=== PATIENT | female | born 1945 | race Caucasian/White ===

== ENCOUNTER 2018-09-06 19:43 | Inpatient (IN) | payer MEDICARE, OTHER ==
[~2018-09-06] VITALS: Ht 152.4 cm; Wt 66.7 kg
[2018-09-06] MEDS ORDERED: ALPR0.5T8 PO (20:02)
[2018-09-06] MEDS ORDERED: BLOO-170 MM (20:02)
[2018-09-06] MEDS ORDERED: GLIP5TAB13 PO (20:02)
[2018-09-06] MEDS ORDERED: METF-440 PO (20:02)
--- NOTE | 2018-09-06 20:05 | NUR ---
Medically cleared by Dr Mckeon
--- NOTE | 2018-09-06 20:10 | NUR ---
Patient attempting to elope facility. Stating "I need to belt picker my car." Patient was orient to her location and patient was able to deesculate.
--- NOTE | 2018-09-06 20:15 | NUR ---
Patient calm at this time
--- NOTE | 2018-09-06 20:20 | NUR ---
Pt. transferred off unit to admit to MHU, no acute distress,
[2018-09-06 20:30] VITALS: BP 158/66
[2018-09-06] MEDS ORDERED: MAG HYDROX/AL HYDROX/SIMETH 30 ML LIQUID UDC PO PRN (20:30)
[2018-09-06] MEDS ORDERED: ACETAMINOPHEN 650 MG SUPP.RECT RC PRN (20:30)
[2018-09-06] MEDS ORDERED: TEMAZEPAM 7.5 MG CAPSULE PO PRN (20:30)
[2018-09-06] MEDS ORDERED: MAGNESIUM HYDROXIDE 30 ML LIQUID UDC PO PRN (20:30)
[2018-09-06] MEDS: BLOOD SUGAR DIAGNOSTIC 1 EACH STRIP VI SCH (21:00)
[2018-09-06] MEDS: glipiZIDE 5 MG TABLET PO SCH (21:58)
--- NOTE | 2018-09-06 22:00 | NUR ---
Patient refused Accucheck. Risks and benefits explained. Stated that she done it before and she needed to sleep.
--- NOTE | 2018-09-06 22:30 | NUR ---
Patient admitted at 2044 with 72 hours hold due to danger to herself under care of Dr. Bolden. AAO x3. Condition was fair. No acute distress or SOB noted. She was uncooperative, angry, and demanding to leave. Repeating, "I am not going to stay here, I am not a psych patient". She did not cooperate with history and physical. Patient refused body check and refused to sign admitting papers. She also refused Accucheck. Admitting order and belonging list done. Continue to monitor.
--- NOTE | 2018-09-07 04:13 | NUR ---
Patient refused body check. Also refused to take history and doing physical on her. Denies mental problem.
[2018-09-07] MEDS: BLOOD SUGAR DIAGNOSTIC 1 EACH STRIP VI SCH ×3 (06:30→21:14)
--- NOTE | 2018-09-07 06:59 | NUR ---
Patient refused to take shower.
[2018-09-07 07:30] VITALS: BP 126/60
[2018-09-07] MEDS: METFORMIN HCL 500 MG TABLET PO SCH ×2 (08:48→17:36)
[2018-09-07] MEDS ORDERED: BLOOD SUGAR DIAGNOSTIC 1 EACH STRIP VI SCH ×2 (09:00)
[2018-09-07] MEDS ORDERED: DEXTROSE 50% 50 ML DISP.SYRIN IV PRN ×2 (09:30→22:15)
[2018-09-07] MEDS ORDERED: INSULIN REGULAR, HUMAN 300 UNIT/3 ML VIAL SQ PRN (09:30)
--- NOTE | 2018-09-07 11:45 | NUR ---
Gps/Supervisor Sewing Room- Patient was able to take shower w. GEAR CHANGER supervising her. Patient speaks Farsi and noted interacting well w/ GEAR CHANGER speaking Farsi. Patient verbalized anger, does not want to be here, claimed she does not belong here, " i am not crazy like them". Refusing to have her accu-check done . Patient kept coming to Nurses station, demanding to give her back her red dirty dress, needed to be in the dry deck specialist not wash w/ water and soap, claimed she will sussy this place if her dress shrank.
--- NOTE | 2018-09-07 15:51 | NUR ---
Gps/Biodiesel Plant Manager- Ira Pride [phone] , called , she claimed she is Sepideh's friend for many years, spoke to patient claimed it is ok to talk to her and give informations, permission from patient obtained .No info. was provided, until patient was able to talk to her.
[2018-09-07 16:00] VITALS: BP 147/65
--- NOTE | 2018-09-07 17:30 | NUR ---
Gps/Regional Director Of Finance- Patient finally agreed to have her blood sugar check after 4x of reoffering . BS 522, patient started to eat dinner. Patient was educ. and iinstructed importance of letting staff check her BS as well as insulin administration while she is in the MHU. Able to persuaed patient to take her routine oral blood sugar meds. Charge Nurse informed of the elevated blood sugar. Informed Medical Doctor in charge of patient. Patient labile mood contant redirections , non compliance with dietary needs and intake.
[2018-09-07] MEDS: glipiZIDE 5 MG TABLET PO SCH (17:35)
--- NOTE | 2018-09-07 18:30 | NUR ---
Gps/Take Away Attendant- Patient noted to be argumentative with staff, regarding changing TV channels. Difficulty redirecting, gets loud, kept refusing prn.Continue to monitor behavior.
[2018-09-07] MEDS: LORAZEPAM 1 MG TABLET PO PRN (20:29)
[2018-09-07 20:39] VITALS: BP 148/91
--- NOTE | 2018-09-07 20:44 | NUR ---
patient c/o anxiety. ativan 1 mg po given.
[2018-09-07] MEDS: DIVALPROEX 250 MG TABLET.DR PO SCH (21:03)
--- NOTE | 2018-09-07 21:40 | NUR ---
PATIENT IS RESTING IN BED. CALM AND COOPERATIVE. ATIVAN EFFECTIVE FOR ANXIETY.
[2018-09-07] MEDS: INSULIN REGULAR, HUMAN 300 UNIT/3 ML VIAL SQ PRN (23:07)
[2018-09-08] MEDS: ACETAMINOPHEN 325 MG TABLET PO PRN ×2 (05:38→18:18)
--- NOTE | 2018-09-08 05:38 | NUR ---
PATIENT C/O GEN: PAIN. TYLENOL 650 MG PO GIVEN.
--- NOTE | 2018-09-08 06:08 | NUR ---
REMAIN UNCOOPERATIVE WITH CARE. COMPLIANT WITH MEDICATIONS. SLEPT 6:30 HRS THROUGH THE NIGHT.
[2018-09-08] MEDS: BLOOD SUGAR DIAGNOSTIC 1 EACH STRIP VI SCH ×4 (06:56→20:55)
[2018-09-08 07:30] VITALS: BP 138/76
[2018-09-08 08:04] LABS: CARBON DIOXIDE 24 mmol/L (21-32); CHLORIDE 98 mmol/L (98-107); CREATININE 0.7 mg/dL (0.6-1.3); POTASSIUM 4.2 mmol/L (3.5-5.1); UREA NITROGEN, BLOOD 13 mg/dL (7-18)
[2018-09-08 08:10] LABS: GLUCOSE 302 mg/dL (74-106)
[2018-09-08] MEDS: DIVALPROEX 250 MG TABLET.DR PO SCH ×3 (09:00→17:00)
[2018-09-08] MEDS: METFORMIN HCL 500 MG TABLET PO SCH ×2 (09:30→17:31)
[2018-09-08] MEDS: LORAZEPAM 1 MG TABLET PO PRN (09:57)
[2018-09-08] MEDS: INSULIN REGULAR, HUMAN 300 UNIT/3 ML VIAL SQ PRN ×3 (09:58→20:52)
--- NOTE | 2018-09-08 10:56 | NUR ---
Firearms Report: orchard worker completed and submitted a [employer] firearms report for a 5150 DTS certification.
--- NOTE | 2018-09-08 12:00 | NUR ---
pt continues to be uncooperative, agressive, hostile, verbally abusive, grandiose. continues to refuse all meds. blood sugar 457, pt refusing insulin. explained importance of insulin, states "i dont take that, i dont need it. I am here by mistake, i have my own dr to help me. i have my own medications in my purse and i demand you give them to me right now. i will keep them in my pocket and take them as I need them. i am a chanell, why are you not following my commands!" explained to pt that not only does she not have a bag/purse or medications here, that we can only give what the dr prescribes. states " i will sussy you and make sure to give orders to make sure you get killed after i break out of here. i am not taking any of your poison!"
--- NOTE | 2018-09-08 12:30 | NUR ---
paged dr gunderson through exchange to report blood sugar level of 457 and that pt is refusing insulin. awaiting call back.
--- NOTE | 2018-09-08 13:02 | NUR ---
SW DR CASIANO ABOUT BG 457 AND PT REFUSING INSULIN. NO NEW ORDERS.
--- NOTE | 2018-09-08 14:00 | NUR ---
PT CONTINUES TO BE AGGITATED, VERBALLY ABUSIVE, PHYSICALLY THREATENING STAFF MEMBERS, CONSTANTLY GOING INTO NURSING STATION AND RECREATIONAL ACTIVITY OFFICE, ARGUMENTATIVE WITH STAFF AND PTS, AGGITATING OTHER PTS. PT NOT REDIRECTABLE,REFUSING PRN PO MEDICATION.
[2018-09-08] MEDS ORDERED: LORAZEPAM 2 MG/1 ML VIAL IM STA (14:14)
[2018-09-08] MEDS ORDERED: diphenhydrAMINE 50 MG/1 ML VIAL IM STA (14:14)
[2018-09-08] MEDS ORDERED: HALOPERIDOL LACTATE 5 MG/1 ML VIAL IM STA (14:14)
--- NOTE | 2018-09-08 15:30 | NUR ---
IM GIVEN PER MD ORDER. PY TOLERATED MEDICATIONS WELL, MONITORED PER P/P.
[2018-09-08 15:49] VITALS: BP 146/72
[2018-09-08 20:25] VITALS: BP 160/89
[2018-09-08] MEDS: INSULIN GLARGINE,HUM 300 UNITS/3 ML CARTRIDGE SQ SCH (20:47)
--- NOTE | 2018-09-09 00:01 | NUR ---
Lying in bed non compliant for staff to perform blood sugar check or administer insulin injections. 1-1 with staff to verbalize her feelings. I was finally able to check pts blood sugar of 372 gave 13 units of lantus and 10 units of Humlin regular. Ate 100% of her snack.
[2018-09-09] MEDS: ACETAMINOPHEN 325 MG TABLET PO PRN ×3 (04:06→17:19)
[2018-09-09] MEDS: BLOOD SUGAR DIAGNOSTIC 1 EACH STRIP VI SCH ×4 (06:39→20:31)
--- NOTE | 2018-09-09 06:51 | NUR ---
Slept 8.3 hrs during the shift. 0700 Blood Sugar 300. Pt remains angry for being placed in [facility] on a hold.
[2018-09-09 07:30] VITALS: BP 165/88
[2018-09-09] MEDS: METFORMIN HCL 500 MG TABLET PO SCH ×2 (08:02→17:38)
[2018-09-09] MEDS: DIVALPROEX 250 MG TABLET.DR PO SCH ×3 (08:02→17:38)
[2018-09-09] MEDS: INSULIN REGULAR, HUMAN 300 UNIT/3 ML VIAL SQ PRN ×3 (11:57→20:31)
--- NOTE | 2018-09-09 15:57 | NUR ---
Initial Discharge Note: Patient is a 72 year old female who is currently homeless living out of her van. Per patient she has been living out of her van for 3 months. Patient states she morris her van in the parking lot of the [employer] [[address] [place] [address]; ] where she receives lunch and other food products. Per patient she would like to return to her van. However, patient needs assistance with getting her van out of "[employer]". textile pin worker will collaborate with patient, patient support system, and MD on a safe and proper discharge.
[2018-09-09 16:00] VITALS: BP 156/90
[2018-09-09 20:00] VITALS: BP 151/82
[2018-09-09] MEDS: risperiDONE 0.5 MG TABLET PO SCH (20:26)
[2018-09-09] MEDS: INSULIN GLARGINE,HUM 300 UNITS/3 ML CARTRIDGE SQ SCH (20:30)
[2018-09-10] MEDS: BLOOD SUGAR DIAGNOSTIC 1 EACH STRIP VI SCH ×4 (06:37→20:56)
--- NOTE | 2018-09-10 06:41 | NUR ---
Received Pt at the Nurse's station asking for multiple items: the phone, her friend's phone number, snacks, juice, and new clothes. Pt is needy, demanding, and hyperverbal, requires firm limits and redirection. Exhibits pressured speech and elevated affect. Poor insight, denies any psychiatric problem, repeatedly states she should not be here and needs to go home. Selective with medications, requires prompting to take them. Intrusive with other Pt's and attempts to get involved when staff is rendering care to another Pt. Denies SI/HI/AH/VH. Refused shower, appears disheveled. HS BS 327, 13 units Lantus and 8 units regular insulin ordered per SS. Pt initially refused insulin, and was educated about her elevated BS and the risks of refusing insulin, after which she gave permission to administer. VS stable, denies pain. In no acute physical distress. AM BS 267.
[2018-09-10 07:30] VITALS: BP 146/86
[2018-09-10] MEDS: INSULIN REGULAR, HUMAN 300 UNIT/3 ML VIAL SQ PRN ×4 (07:59→20:54)
[2018-09-10] MEDS: DIVALPROEX 250 MG TABLET.DR PO SCH ×3 (08:22→17:24)
[2018-09-10] MEDS: METFORMIN HCL 500 MG TABLET PO SCH ×2 (08:22→17:23)
[2018-09-10] MEDS: risperiDONE 0.5 MG TABLET PO SCH ×2 (08:22→20:56)
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
--- NOTE | 2018-09-10 13:30 | NUR ---
GROUP NOTE: Patients were asked to discuss their thoughts on what they would change in their lives in order to invoke empowerment and explore coping strategies for things they cannot change. Subjective: "If I could change something about myself? Nothing. About the world, the politics." Objective: Patient expressed interest in attending group and was present for group the entire time. Patient maintained eye contact throughout the group time. Patient discussed topics that were off-topic from the group and required redirection. Assessment: Patient presented in a calm and cooperative mood. Patient's thought process seemed tangential and circumstantial, as she began trying to discuss other topics in the group (i.e. suicide bombers, the [place] wedding, etc.) Patient required frequent redirection and instruction to let other members of the group speak. Patient presented with grandiose delusions stating that the was and [place] and "best friends with Princess Myers." Pt seems to lack insight into her mental health. Plan: SW will continue to encourage group attendance as scheduled. SW will continue to provide support to the patient to encourage insight and coping skills.
--- NOTE | 2018-09-10 14:17 | NUR ---
Discharge Planning: bead worker sewing initiated conversation with patient regarding conversation with Ira Pride [[phone]; see previous DC planning note]. Patient refuses to believe that her license is suspended and that her van is unlivable. Patient remains delusional about current living situation stating that she "knows many people" and can live with them. bead worker sewing brought up discharge to a usp facility and patient vehemently denied stating she will return to her van, though currently unlivable and not an option. Patient continues to perseverate about getting discharged and even began to get agitated. Patient stated that she would kill herself if she wasn't released and that she would do it "now". bead worker sewing inquired if patient has a plan to carry out suicide and patient stated "I'm not telling you" and was unable to contract for safety at this time. Patient then told social media job titles to get out of her room. bead worker sewing left room and went to nursing station to inform charge authorizer, Jeancarlos, about patient SI comments. Both chargemaster analyst and social media job titles returned to speak with patient, who was now in MHU community room. bead worker sewing asked patient if she was still having thoughts about killing self and patient denied and stated she didn't have a plan. Patient was able to contract for safety. Nurses and social media job titles will continue to frequently check on patient. bead worker sewing will continue to collaborate with patient and MD on a safe and proper discharge.
[2018-09-10 16:00] VITALS: BP 125/73
--- NOTE | 2018-09-10 19:55 | NUR ---
RECEIVED PATIENT IN THE HALLWAY, SHE IS NOTED A/O X 3. SHE CONTINUE FIXED ON BEING DISCHARGED FROM FACILITY. SHE IS NOTED WITH LABILE BX. EASILY IRRITABLE DEMANDING AND ARGUMENTATIVE. V/S STABLE AT THIS TIME, WILL CONTINUE TO MONITOR.
[2018-09-10 20:14] VITALS: BP 138/78
[2018-09-10] MEDS: INSULIN GLARGINE,HUM 300 UNITS/3 ML CARTRIDGE SQ SCH (20:55)
--- NOTE | 2018-09-10 22:00 | NUR ---
PATIENT WAS COMPLIANT WITH [facility] MEDICATION REGIMENT. SHE IS NOTED CALM AND PLEASANT; HOWEVER, SHE CONTINUE FIXED ON HER DISCHARGE. WILL CONTINUE TO MONITOR
[2018-09-11] MEDS: BLOOD SUGAR DIAGNOSTIC 1 EACH STRIP VI SCH ×4 (06:57→20:56)
[2018-09-11 07:30] VITALS: BP 136/67
[2018-09-11] MEDS: risperiDONE 0.5 MG TABLET PO SCH (08:39)
[2018-09-11] MEDS: DIVALPROEX 250 MG TABLET.DR PO SCH ×3 (08:39→17:27)
[2018-09-11] MEDS: METFORMIN HCL 500 MG TABLET PO SCH ×2 (08:39→17:27)
[2018-09-11] MEDS: INSULIN REGULAR, HUMAN 300 UNIT/3 ML VIAL SQ PRN ×4 (08:42→20:58)
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
--- NOTE | 2018-09-11 19:30 | NUR ---
RECEIVED PATIENT IN THE DAY ROOM WATCHING TV, SHE IS NOTED A/O X 3. CALM AND PLEASANT UPON APPROACHED LESS DEMANDING AND LESS IRRITABLE. UPON INTERVIEW SHE IS NOTED WITH FLIGHT OF IDEAS, TANGENTAL, BUT CONTINUE WISHING TO GO HOME, SHE STATED, "I WANT TO GO BACK HOME SO I CAN GO TO [place] ON SATURDAY. PATIENT CONTINUE HAVING POOR INSIGHT INTO THE REASON FOR HER ADMISSION TO MHU. V/S STABLE AT THIS TIME, PT WAS REASSURED FOR HER SAFETY, SHE WAS ENCOURAGE EXPRESSION OF FEELINGS OR ANY THOUGHTS. WILL CONTINUE TO MONITOR.
[2018-09-11] MEDS: risperiDONE 1 MG TABLET PO SCH (20:56)
[2018-09-11 21:02] VITALS: BP 124/70
[2018-09-11] MEDS: INSULIN GLARGINE,HUM 300 UNITS/3 ML CARTRIDGE SQ SCH (21:05)
[2018-09-12] MEDS: BLOOD SUGAR DIAGNOSTIC 1 EACH STRIP VI SCH ×4 (06:38→20:40)
[2018-09-12 08:30] VITALS: BP 133/70
[2018-09-12] MEDS: METFORMIN HCL 500 MG TABLET PO SCH ×2 (08:35→17:33)
[2018-09-12] MEDS: DIVALPROEX 250 MG TABLET.DR PO SCH ×3 (08:35→16:24)
[2018-09-12] MEDS: risperiDONE 0.5 MG TABLET PO SCH (08:36)
[2018-09-12] MEDS: INSULIN REGULAR, HUMAN 300 UNIT/3 ML VIAL SQ PRN ×3 (12:39→20:45)
[2018-09-12 15:00] VITALS: BP 129/73
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
--- NOTE | 2018-09-12 16:28 | NUR ---
Gps/Inspector Mechanical- Inappropriate behavior during the group therapy, per Rec therapist, pt. kept turning the radio off while in the middle of tx., patient claimed she wanted to watch TV and there in no therapy going on. Needed redirections .
[2018-09-12 20:00] VITALS: BP 137/91
[2018-09-12] MEDS: risperiDONE 1 MG TABLET PO SCH (20:34)
[2018-09-12] MEDS: INSULIN GLARGINE,HUM 300 UNITS/3 ML CARTRIDGE SQ SCH (20:46)
[2018-09-12] MEDS: DIVALPROEX 500 MG TABLET.DR PO SCH (20:53)
--- NOTE | 2018-09-13 06:15 | NUR ---
GPS: REMAIN CALM AND COOPERATIVE WITH MEDICATIONS AND CARE. NO BEHAVIOR PROBLEM NOTED. SLEPT 6 HRS THROUGH THE NIGHT. CONTINUE PLAN OF CARE.
[2018-09-13] MEDS: BLOOD SUGAR DIAGNOSTIC 1 EACH STRIP VI SCH ×4 (06:24→20:59)
[2018-09-13 08:11] VITALS: BP 151/83
[2018-09-13] MEDS: risperiDONE 0.5 MG TABLET PO SCH (08:41)
[2018-09-13] MEDS: METFORMIN HCL 500 MG TABLET PO SCH ×2 (08:41→18:01)
[2018-09-13] MEDS: DIVALPROEX 250 MG TABLET.DR PO SCH ×2 (08:41→13:21)
[2018-09-13] MEDS: INSULIN REGULAR, HUMAN 300 UNIT/3 ML VIAL SQ PRN ×3 (08:43→21:04)
[2018-09-13] MEDS ORDERED: DIVALPROEX 125 MG TABLET.DR PO SCH (09:00)
[2018-09-13] MEDS ORDERED: LORAZEPAM 0.5 MG TABLET PO PRN (15:45)
[2018-09-13 16:13] VITALS: BP 149/58
[2018-09-13 20:00] VITALS: BP 140/74
[2018-09-13] MEDS: risperiDONE 1 MG TABLET PO SCH (20:58)
[2018-09-13] MEDS: DIVALPROEX 500 MG TABLET.DR PO SCH (20:58)
[2018-09-13] MEDS: INSULIN GLARGINE,HUM 300 UNITS/3 ML CARTRIDGE SQ SCH (21:06)
--- NOTE | 2018-09-13 22:00 | NUR ---
PATIENT PRESENTS WITH FLIGHT OF IDEAS. BRIGHT AFFECT, LABILE MOOD. PLEASANT UPON APPROACHED. MEDICATION COMPLIANT AT THIS TIME. PT WAS ASSESS FOR SAFETY, SHE WAS ENCOURAGE TO VERBALIZED FEELINGS. DENIES SI/HI. DENIES AH/VH. ABLE TO CFS. V/S STABLE. WILL CONTINUE TO MONITOR.
[2018-09-14] MEDS: BLOOD SUGAR DIAGNOSTIC 1 EACH STRIP VI SCH ×4 (06:43→20:59)
[2018-09-14 07:30] VITALS: BP 131/74
[2018-09-14] MEDS ORDERED: risperiDONE 0.5 MG TABLET PO SCH (09:00)
[2018-09-14] MEDS: METFORMIN HCL 500 MG TABLET PO SCH ×2 (09:31→17:54)
[2018-09-14] MEDS: DIVALPROEX 250 MG TABLET.DR PO SCH ×2 (09:31→15:19)
[2018-09-14] MEDS: risperiDONE 1 MG TABLET PO SCH ×2 (09:31→20:52)
[2018-09-14 15:58] VITALS: BP 129/73
[2018-09-14] MEDS: INSULIN REGULAR, HUMAN 300 UNIT/3 ML VIAL SQ PRN ×2 (17:55→21:00)
[2018-09-14 20:05] VITALS: BP 138/72
[2018-09-14] MEDS: DIVALPROEX 500 MG TABLET.DR PO SCH (20:52)
[2018-09-14] MEDS: INSULIN GLARGINE,HUM 300 UNITS/3 ML CARTRIDGE SQ SCH (21:04)
--- NOTE | 2018-09-14 22:53 | NUR ---
RECEIVED PATIENT IN THE ACTIVITY ROOM WHO PROMPTLY GOT OUT TO ASK NURSES TO CHANGE THE T.V CHANNEL FOR HER.WHEN SHE WAS TOLD TO WAIT FOR A FEW MINUTES SHE REPLIED '[employer]SHOLES'.HER MOOD IS LABILE.AFFECT BRIGHT, AND MOVING FROM ONE TOPIC TO THE NEXT.SHE HOWEVER TOOK ALL HER MEDS AND SALUTED THE NURSE.ON BLOOD SUGAR CHECK WITH GLARGINE COVERAGE.SAME GIVEN WITH NO ADVERSE EFFECT.WILL CONTINUE TO MONITOR.
[2018-09-15] MEDS: BLOOD SUGAR DIAGNOSTIC 1 EACH STRIP VI SCH ×4 (06:47→20:06)
--- NOTE | 2018-09-15 06:57 | NUR ---
SLEPT FOR APPROX. 7;30 HRS.LATER ACCUSED STAFF OF MAKING NOISE IN THE HALLWAY.BLOOD SUGAR CHECK 108
[2018-09-15 07:20] LABS: CARBON DIOXIDE 32 mmol/L (21-32); CHLORIDE 104 mmol/L (98-107); CREATININE 0.6 mg/dL (0.6-1.3); GLUCOSE 114 mg/dL (74-106); MAGNESIUM 1.7 mg/dL (1.8-2.4); PHOSPHOROUS 4.2 mg/dL (2.5-4.9); POTASSIUM 4.7 mmol/L (3.5-5.1); UREA NITROGEN, BLOOD 13 mg/dL (7-18)
[2018-09-15 07:45] LABS: BASOPHILS % (AUTO) 0.7 % (0.0-2.0); EOSINOPHILS # (AUTO) 0.2 K/uL (0.0-0.7); HEMATOCRIT 37.1 % (31.2-41.9); HEMOGLOBIN 12.5 g/dL (10.9-14.3); LYMPHOCYTES # (AUTO) 2.9 K/uL (20.0-40.0); MEAN CORPUSCULAR HEMOGLOBIN 26.9 uug (24.7-32.8); MEAN CORPUSCULAR HGB CONC 34 g/dL (32.3-35.6); MEAN CORPUSCULAR VOLUME 80.1 fL (75.5-95.3); MONOCYTES # (AUTO) 0.6 K/uL (2.0-10.0); MONOCYTES % (AUTO) 8.8 % (0.0-11.0); NEUTROPHILS # (AUTO) 2.7 K/uL (1.8-8.9); NEUTROPHILS % (AUTO) 42.5 % (38.5-71.5); PLATELET COUNT (AUTO) 242 K/uL (179-408); RED BLOOD CELL COUNT(AUTO) 4.64 MIL/uL (3.63-4.92); WHITE BLOOD COUNT (AUTO) 6.4 K/uL (3.8-11.8)
[2018-09-15 07:59] VITALS: BP 158/78
[2018-09-15] MEDS: DIVALPROEX 250 MG TABLET.DR PO SCH ×2 (08:03→12:04)
[2018-09-15] MEDS: risperiDONE 1 MG TABLET PO SCH ×2 (08:03→20:07)
[2018-09-15] MEDS: METFORMIN HCL 500 MG TABLET PO SCH ×2 (08:03→17:06)
--- NOTE | 2018-09-15 11:46 | NUR ---
GPS: NURSING: RECEIVED LAB RESULT WITH MAGNESIUM LEVEL 1.7 AND RELAYED IT TO MARSHA ARECHIGA, WAITING FOR CALL BACK.
--- NOTE | 2018-09-15 12:31 | NUR ---
Discharge Planning: pole frame construction worker called and left a voicemail for Janes Reynolds,supervisor felling bucking, at [facility] [[phone]] regarding placement for patient. pole frame construction worker awaiting call back.
--- NOTE | 2018-09-15 14:00 | NUR ---
GPS: NURSING: PATIENT VISITED BY MARSHA ARECHIGA AND RELAYED PATIENT'S LAB RESULT FOR MAGNESIUM OF 1.7 WITH NEW ORDERS OF 400MG MAG OXIDE PO ONCE.
[2018-09-15] MEDS ORDERED: MAGNESIUM OXIDE 400 MG TABLET PO ONE (14:15)
[2018-09-15] MEDS: INSULIN REGULAR, HUMAN 300 UNIT/3 ML VIAL SQ PRN ×2 (17:01→20:09)
[2018-09-15 17:05] VITALS: BP 157/82
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
[2018-09-15] MEDS: DIVALPROEX 500 MG TABLET.DR PO SCH (20:07)
[2018-09-15] MEDS: INSULIN GLARGINE,HUM 300 UNITS/3 ML CARTRIDGE SQ SCH (20:08)
[2018-09-15 20:21] VITALS: BP 144/65
[2018-09-15] MEDS ORDERED: risperiDONE 0.5 MG TABLET PO SCH (21:00)
--- NOTE | 2018-09-16 05:59 | NUR ---
Received Pt in the day room, VS stable, denies pain, in no acute physical distress. Denies SI, remains unkempt and disheveled, refuses shower. Compliant with HS medications, cooperative with staff direction. Hyperverbal attention-seeking and intrusive. Presents with grandiose delusions, states she was a "chanell in [place]", and has poor insight into her mental condition and reason for admission. Pt denies all events written on her 5150, and states "they are all lies." Denies SI/HI, denies AH/VH. HS BS 387, 10 units regular insulin administered per SS and Lantus 13 units per MD order. Pt states she felt "good" and exhibited no overt s/s of hyperglycemia.
--- NOTE | 2018-09-16 06:23 | NUR ---
REBECCA BS 75.
[2018-09-16] MEDS: BLOOD SUGAR DIAGNOSTIC 1 EACH STRIP VI SCH ×4 (06:32→21:58)
[2018-09-16 07:30] VITALS: BP 145/80
[2018-09-16] MEDS: DIVALPROEX 250 MG TABLET.DR PO SCH ×2 (08:04→12:23)
[2018-09-16] MEDS: METFORMIN HCL 500 MG TABLET PO SCH ×2 (08:04→17:06)
[2018-09-16] MEDS: risperiDONE 1 MG TABLET PO SCH ×2 (08:05→20:54)
[2018-09-16] MEDS ORDERED: MAGNESIUM OXIDE 400 MG TABLET PO ONE (09:30)
--- NOTE | 2018-09-16 13:32 | NUR ---
Discharge planning: sub assembly team worker placed second phone call to [facility] [[phone]] and was transferred to YORDAN Parmar, at facility. Per front office specialist, he was the person to speak with regarding placement for patient. sub assembly team worker left voicemail for Ghulam regarding patient placement and requested a phone call back. Addendum: 09/16/18 at 1455 by JEAN ORO Additional information: sub assembly team worker received return phone call from Ghulam FARR, at [facility] [[phone]]. Per Ghulam, there are two homeless shelters that patient could be transported directly to including [facility] [[address] [place] [address]; ] and [facility] [[address], [place]; ]. Ghulam also provided a contact for board and care, [facility] [[phone]]. sub assembly team worker will follow-up with these agencies. Per Ghulam, [facility] will be able to provide transportation upon discharge with a 24 hour notice.
--- NOTE | 2018-09-16 15:45 | NUR ---
GPS: NURSING: RECEIVED PACKAGE FROM A FRIEND, BARRETT, ASKED PATIENT TO COME TO THE NURSING STATION TO OPEN THE PACKAGE. INSIDE THE PACKAGE WAS: 1 BLUE BAG (AAA), 1 BLACK ZIPPER JACKET, 1 DARK BLUE TANK TOP, 1 BLUE DRESS, 1 FLOWER DRESS, 1 PAIR OF BLUE PAJAMA, 1 BLACK PANTS, 1 VALLEJO LONG SLEEVE, 3 PAIRS OF SOCKS (SKECHERS), 5 UNDERWEAR (1 BLACK, 1 BLUE, 2 VALLEJO AND 1 STRIPE, AND I BAG OF COSMETICS) AND I WHITE WIRED BRA. NOTED IN THE INVENTORY AND CONTRABAND STORED.
[2018-09-16 16:00] VITALS: BP 163/62
[2018-09-16] MEDS: INSULIN REGULAR, HUMAN 300 UNIT/3 ML VIAL SQ PRN ×2 (19:03→22:07)
--- NOTE | 2018-09-16 19:30 | NUR ---
Received Pt in hallway, pacing up and down between guzman and day room. A+Ox3, compliant with medications, cooperative with staff direction, but needs multiple redirection to room. Denies SI/HI and denies AH/VH, but appears internally preoccupied. Pt is pleasant and presents with elated affect. Denies SI/HI/AH/VH. V/S stable, denies pain, in no acute physical distress. BG was 191 at HS, administered 3 units R insulin per sliding scale and provided snacks. Also administered Lantus 13 units per routine scheduled medication. RN to continue to monitor pt. for s/s hypoglycemia.
[2018-09-16 20:13] VITALS: BP 157/82
[2018-09-16] MEDS: DIVALPROEX 500 MG TABLET.DR PO SCH (20:53)
[2018-09-16] MEDS: INSULIN GLARGINE,HUM 300 UNITS/3 ML CARTRIDGE SQ SCH (22:10)
[2018-09-17] MEDS: BLOOD SUGAR DIAGNOSTIC 1 EACH STRIP VI SCH ×4 (06:30→20:21)
[2018-09-17 07:30] VITALS: BP 149/66
[2018-09-17] MEDS: METFORMIN HCL 500 MG TABLET PO SCH ×2 (08:13→17:05)
[2018-09-17] MEDS: DIVALPROEX 250 MG TABLET.DR PO SCH ×2 (08:14→12:13)
[2018-09-17] MEDS: risperiDONE 1 MG TABLET PO SCH ×2 (08:14→20:22)
[2018-09-17] MEDS: INSULIN REGULAR, HUMAN 300 UNIT/3 ML VIAL SQ PRN ×3 (12:16→20:36)
--- NOTE | 2018-09-17 12:29 | NUR ---
Activity group note: Patients were asked to answer the question of "What is one thing you would change about yourself and why? Subjective: "If I could change one thing, it would be to work more as a team [with ex-]" Objective: Patient appeared happy to participate in activity and was attentive to peers. Patient seemed eager to share and often would share opinion on what peers would share. Assessment: Patient needs frequent redirection and reminders to let others speak. Plan: Encourage group attendance as scheduled. youth care worker will help patient be mindful of self and aware when speaking over others. youth care worker will help patient with boundary setting.
--- NOTE | 2018-09-17 14:23 | NUR ---
Discharge Planning: spot worker and patient had discussion of discharge planning in regard to placement. Patient is still fixated that she can return to her van that is impounded and refuses to believe otherwise despite speaking with Paulo moore, who states patient cannot get vehicle out without paying fines and having a person present with a valid farm truck driver's license to drive the vehicle. Patient agreed to go to [facility] [[address] , [place] [address]; ] homeless senior care upon discharge.
[2018-09-17 16:00] VITALS: BP 139/74
[2018-09-17 20:09] VITALS: BP 147/79
[2018-09-17] MEDS: DIVALPROEX 500 MG TABLET.DR PO SCH (20:22)
[2018-09-17] MEDS: INSULIN GLARGINE,HUM 300 UNITS/3 ML CARTRIDGE SQ SCH (20:28)
--- NOTE | 2018-09-18 06:26 | NUR ---
GPS: REMAIN CALM AND COOPERATIVE WITH MEDICATIONS AND CARE. NO AGGRESSIVE BEHAVIOR NOTED. SLEPT 8 HRS THROUGH THE NIGHT. CONTINUE PLAN OF CARE.
[2018-09-18] MEDS: BLOOD SUGAR DIAGNOSTIC 1 EACH STRIP VI SCH ×4 (06:42→20:44)
[2018-09-18 07:30] VITALS: BP 143/74
[2018-09-18] MEDS: DIVALPROEX 250 MG TABLET.DR PO SCH ×2 (08:12→13:05)
[2018-09-18] MEDS: risperiDONE 1 MG TABLET PO SCH ×2 (08:12→20:07)
[2018-09-18] MEDS: METFORMIN HCL 500 MG TABLET PO SCH ×2 (08:12→17:11)
--- NOTE | 2018-09-18 10:21 | NUR ---
DISCHARGE NOTE: Patient will be discharged back to [facility] [[address], [place] [address]; ] and transportation will be provided by [facility] between 11:00am-12:00pm. Transpiration was arranged by Ghulam [[phone]] , COLLATERAL CLERK, at [facility]. general ii farmworker called and spoke with Priscilla, regional transportation manager, at [facility], who states no warm hand-off is needed and that patient should get in line for a bed at 4:00pm. Per Priscilla, check-in for a bed is at 5:00pm. Patient friend/advocate, Ira Pride [[phone]], has been contacted and notified of discharge and she is aware and agreeable with the plan. Patient is alert and oriented x3, denies any SI/HI, and is able to plan for self-care. Patient was briefed on discharge and aware and agreeable with plan. Patient currently has no outpatient psychiatrist or primary care physician to follow-up with. Patient was provided with a list of Medicare accepting psychiatrists and primary care physicians in the [facility]. Patient was also provided with homeless resources in the [facility] including mental health/medical clinics, food tate, and homeless shelters. Patient was given outpatient mental health resources including [facility] [[phone]], [facility] [[phone]], National Suicide Prevention Lifeline [ ]. As patient is homeless, she has signed the homeless patient waiver form.
[2018-09-18] MEDS: INSULIN REGULAR, HUMAN 300 UNIT/3 ML VIAL SQ PRN ×2 (11:35→17:22)
--- NOTE | 2018-09-18 13:54 | NUR ---
Discharge Planning: [facility] was late picking up patient, so social welfare administrator called facility. Per Porsche, inpatient staff member at the facility, there had been a mix up with scheduling on their end and she stated they were no longer able to pick the patient up today. elevator worker attempted to arrange different transport, but patient would not have made it to [facility] by 5:00pm to get a bed. Per Porsche, patient will be picked up tomorrow at 12:00pm and taken to [facility]. Patient has been made aware of change in discharge. Per patient, she is "not happy", but is understanding of need to have a safe discharge to homeless [facility] in order to get a bed..
[2018-09-18 16:00] VITALS: BP 157/64
[2018-09-18 20:00] VITALS: BP 139/60
[2018-09-18] MEDS: DIVALPROEX 500 MG TABLET.DR PO SCH (20:07)
[2018-09-18] MEDS: INSULIN GLARGINE,HUM 300 UNITS/3 ML CARTRIDGE SQ SCH (20:47)
--- NOTE | 2018-09-19 06:19 | NUR ---
GPS: REMAIN CALM AND COOPERATIVE WITH MEDICATIONS AND CARE. NO AGGRESSIVE BEHAVIOR NOTED. SLEPT 7:30 HRS THROUGH THE NIGHT. CONTINUE PLAN OF CARE. RESTING IN BED COMFORTABLY.
[2018-09-19] MEDS: BLOOD SUGAR DIAGNOSTIC 1 EACH STRIP VI SCH (06:42)
[2018-09-19 07:30] VITALS: BP 127/65
[2018-09-19] MEDS: risperiDONE 1 MG TABLET PO SCH (08:00)
[2018-09-19] MEDS: METFORMIN HCL 500 MG TABLET PO SCH (08:00)
[2018-09-19] MEDS: DIVALPROEX 250 MG TABLET.DR PO SCH (08:00)
--- NOTE | 2018-09-19 10:16 | NUR ---
UPDATED DISCHARGE NOTE: Patient will be discharged back to [facility], [facility] [[address], [place] [address]; ] and transportation will be provided by [facility] at 12:00pm. Transportation was arranged by Porsche [[phone]] ,facility staff, at [facility]. wafer line worker called and spoke with Priscilla, brand protection manager, at [facility], who states no warm hand-off is needed and that patient should get in line for a bed at 4:00pm. Per Priscilla, check-in for a bed is at 5:00pm. Patient friend/advocate, Ira Pride [[phone]], has been contacted and notified of discharge and she is aware and agreeable with the plan. Patient is alert and oriented x3, denies any SI/HI, and is able to plan for self-care. Patient was briefed on discharge and aware and agreeable with plan. Patient currently has no outpatient psychiatrist or primary care physician to follow-up with. Patient was provided with a list of Medicare accepting psychiatrists and primary care physicians in the [facility]. Patient was also provided with homeless resources in the [facility] including mental health/medical clinics, food tate, and homeless shelters. Patient was given outpatient mental health resources including [facility] [[phone]], [facility] [[phone]], National Suicide Prevention [employer] [ ]. As patient is homeless, she has signed the homeless patient waiver form.
--- NOTE | 2018-09-19 12:00 | NUR ---
PT LEFT UNIT ON W/C ACCOMPANIED BY CRAPS DEALER AND TNT LINE SUPERVISOR TO PRIVATE VEHICLE. DENIES PAIN OR DISCOMFORT. ABLE TO MAKE ALL NEEDS KNOWN. LEFT WITH ALL NOTED PAPERWORK AND BELONGINGS. DENIES SUICIDAL AND HOMICIDAL IDEATIONS. IN NO ACUTE DISTRESS.
== END 2018-09-19 13:49 | disposition home or self-care (01) | DRG 885 ==
LOC: ER 19:46 → GPS 20:19
PROVIDERS: ADMIT Psychiatry & Neurology Psychiatry; ATTEND Family Medicine
DX: F39 Unspecified mood [affective] disorder (principal); E11.65 Type 2 diabetes mellitus with hyperglycemia; Z59.0 Homelessness; Z79.84 Long term (current) use of oral hypoglycemic drugs; E83.42 Hypomagnesemia; F32.9 Major depressive disorder, single episode, unspecified
CPT/HCPCS: 36415; 71045; 80164; 83735; 84100; 85025; A4663; J1200; J1630; J1815; J2060; J3490